=== PATIENT | female | born 1995 | race American Indian/Alaskan Native ===

== ENCOUNTER 2018-01-24 16:29 | Outpatient (CLI) | payer MEDICAID ==
[2018-01-24] MEDS ORDERED: LACTATED RINGERS 500 ML IV ONE (17:02)
[2018-01-24 17:13] VITALS: BP 120/74
[2018-01-24 18:46] LABS: Bilirubin,Urine NEG (Negative); Blood,Urine NEG (Negative); Color,Urine Yellow (Yellow); Mucus,Urine FEW /HPF; Protein,Urine <15 mg/dL mg/dL (Negative); Urobilinogen,Urine < 2.0 mg/dL (<2.0)
--- NOTE | 2018-01-24 20:28 | Ultrasound Report ---
FINAL REPORT PROCEDURE: US OB LIMITED TECHNIQUE: Real-time limited sonographic examination was performed for evaluation of amniotic fluid index for each fetus with image documentation (1 or more fetuses). CPT 04380 HISTORY: Leaking Fluid COMPARISON: No prior studies are available for comparison. FINDINGS: A single intrauterine gestation is identified with a heart rate of 142 beats per minute. Amniotic fluid index is 13.9 centimeters. IMPRESSION: Amniotic fluid index is within normal limits.
--- NOTE | 2018-01-25 05:28 | Progress Note ---
Assessment and Plan A: at 36 weeks, 5 days gestation. Not in labor. P: Patient signed out AMA while awaiting US and fern test results. Subjective - Subjective Date of service: 01/24/18 Principal diagnosis: at 36 weeks, 5 days gestation Interval history: 22 year old presented to L&D triage at 36 weeks, 5 days gestation complaining of leaking of some sort of fluid from vagina beginning this afternoon. Patient states the leakage occurred once and stopped. Pt. denies vaginal bleeding. Patient denies abdominal pain or contractions. Patient reports active movement. Patient states she receives care from [facility]. Patient reports: movement normal, no vaginal bleeding, no contractions Objective - Exam Abdomen: Present: normal appearance, soft. Absent: distention, tenderness, guarding, rigidity Uterus: Present: fundal height above umbilicus, other (SSE: no pooling, negative fern test). Absent: tenderness FHR: category 1 Uterine Contraction Monitor Mode: External Cervical Dilatation: 0 Uterine Contraction Pattern: Irregular Uterine Contraction Intensity: Mild Extremities: normal - Labs Labs: Laboratory Results - last 24 hr 01/24/18 Unknown Urine Color Yellow Urine Turbidity Clear Urine pH 7.0 Ur Specific Mclean 1.009 Urine Protein <15 mg/dl Urine Glucose (UA) Neg Urine Ketones Neg Urine Blood Neg Urine Nitrite Neg Urine Bilirubin Neg Urine Urobilinogen < 2.0 Ur Leukocyte Esterase Tr Urine WBC (Auto) 3.0 Urine RBC (Auto) 1.0 U Epithel Cells (Auto) 7.0 Urine Mucus Few
== END 2018-01-24 21:08 | disposition left against medical advice (07) ==
LOC: TRG 16:29
PROVIDERS: ATTEND Obstetrics & Gynecology
DX: O47.03 False labor before 37 completed weeks of gestation, third trimester (principal); O99.333 Smoking (tobacco) complicating pregnancy, third trimester; Z3A.36 36 weeks gestation of pregnancy
CPT/HCPCS: 59025; 76815; 81001

== ENCOUNTER 2018-02-05 12:26 | Outpatient (CLI) | payer MEDICAID ==
[2018-02-05] MEDS ORDERED: BICILLIN CR IM ONE (12:47)
[2018-02-05 12:59] VITALS: BP 118/67
== END 2018-02-05 14:00 | disposition home or self-care (01) ==
LOC: TRG 12:26 → LD 12:36 → TRG 14:00
PROVIDERS: ATTEND Obstetrics & Gynecology
DX: O47.1 False labor at or after 37 completed weeks of gestation (principal); Z3A.38 38 weeks gestation of pregnancy; F17.290 Nicotine dependence, other tobacco product, uncomplicated; Z88.5 Allergy status to narcotic agent
CPT/HCPCS: 59025; J0558

== ENCOUNTER 2018-09-19 15:57 | Emergency (ER) | payer MEDICAID, OTHER | END 2018-09-19 16:02 | disposition left against medical advice (07) | LOC: ED 15:57 | DX: M54.9 Dorsalgia, unspecified (principal); Z53.21 Procedure and treatment not carried out due to patient leaving prior to being seen by health care provider ==